=== PATIENT | male | born 1990 | race Caucasian/White ===

== ENCOUNTER 2017-08-18 00:12 | Emergency (ER) | payer OTHER ==
[~2017-08-18] VITALS: Ht 180.3 cm; Wt 88.0 kg
[2017-08-18] MEDS ORDERED: HYDROcodone/APAP 5/325MG 1 TAB TABLET PO ONE (00:45)
[2017-08-18] MEDS ORDERED: HYDR-2758 PO (01:59)
--- NOTE | 2017-08-18 02:00 | PHYS DOC ---
Adult General Chief Complaint Chief Complaint: MECHANICAL FALL HPI HPI 18-year-old male presenting to the emergency department after having mechanical fall playing mask well. He reports back pain and right knee pain. His pain is sharp moderate intermittent and without alleviating factors. He denies any other injuries. He reports multiple surgeries on his right knee of the ACL and believes he may have reinjured his ligaments. Review of systems is negative for chest pain shortness of breath abdominal pain nausea vomiting. All other review of systems is negative unless otherwise noted in history of present illness. ED course: 18-year-old male presenting to the emergency department today with right knee pain and back pain. Oral hydrocodone given for pain while here. X- ray of the knee shows no obvious acute fracture or dislocation. X-rays of the low back reviewed by myself show no obvious fractures or acute abnormalities. On reexamination the patient is feeling better. Pertinent physical exam findings show pain with passive range of motion of the knee. Effusion present. No abrasions lacerations or ecchymosis. Palpable pulse distally. 2 second cap refill. Otherwise the remainder the extremities are atraumatic with normal range of motion of the joints. He was placed in a knee immobilizer and discharged back to care home to follow-up with an orthopedic surgeon and a possible outpatient MRI. Review of Systems Review of Systems SEE ABOVE Current Medications Current Medications Current Medications Medications (Trade) Dose Ordered Sig/Larisa Start Time Stop Time Status Last Admin Dose Admin Acetaminophen/ Hydrocodone Bitart (Lortab 5/325) 2 tab 1X ONCE 08/18/17 00:45 08/18/17 01:02 DC 08/18/17 00:45 2 TAB Allergies Allergies Allergies Coded Allergies Type Severity Reaction Last Updated Verified Penicillins Allergy Intermediate Swelling 08/18/17 Yes Physical Exam Physical Exam Constitutional: Well developed, well nourished, no acute distress, non-toxic appearance. [] HENT: Normocephalic, atraumatic, bilateral external ears normal, oropharynx moist, no oral exudates, nose normal. [] Eyes: PERRLA, EOMI, conjunctiva normal, no discharge. [] Neck: Normal range of motion, no tenderness, supple, no stridor. [] Cardiovascular:Heart rate regular rhythm, no murmur [] Lungs & Thorax: Bilateral breath sounds clear to auscultation [] Abdomen: Bowel sounds normal, soft, no tenderness, no masses, no pulsatile masses. [] Skin: Warm, dry, no erythema, no rash. [] Back: No tenderness, no CVA tenderness. [] Extremities: see above Neurologic: Alert and oriented X 3, normal motor function, normal sensory function, no focal deficits noted. [] Psychologic: Affect normal, judgement normal, mood normal. [] EKG EKG [] Radiology/Procedures Radiology/Procedures [] Course & Med Decision Making Course & Med Decision Making Pertinent Labs and Imaging studies reviewed. (See chart for details) [] Dragon Disclaimer Dragon Disclaimer This chart was dictated in whole or in part using Voice Recognition software in a busy, high-work load, and often noisy Emergency Department environment. It may contain unintended and wholly unrecognized errors or omissions. Departure Departure: Impression: Primary Impression: Right knee pain Additional Impression: Low back pain Disposition: HOME, SELF-CARE Condition: STABLE Patient Instructions: Back Exercises, Back Pain, Adult, Knee Pain, [id number] Additional Instructions: Thank you for allowing us to participate in your care today. Followup with your primary care physician in 3 days if your symptoms do not improve. You will likely need to see an orthopedic surgeon and have an MRI of your knee given your long-standing history of knee surgeries. Call your Primary Doctor tomorrow and inform them of your visit today. If you do not have a primary care provider you can ask for a list of our primary care providers. Return to the emergency department you have any new or concerning findings. This should be evaluated by the primary care physician and any necessary consulting services for continued management within a few days after discharge. Return to emergency room if you have any new or concerning symptoms including but not limited to fever, chills, nausea, vomiting, intractable pain, any new rashes, chest pain, shortness of air, uncontrolled bleeding, difficulty breathing, and/or vision loss. You may have been prescribed medication that can change in your level of thinking and ability to operate machinery. These medications include hydrocodone and Ativan. Also, Benadryl has been known to do this as well. Be sure to check with your pharmacist and ask if the medications you've prescribed can affect your level of consciousness. I recommend not operating heavy machinery or driving while on medication such as these. Scripts Hydrocodone Bit/Acetaminophen (HYDROCODONE-APAP 5-325 ) 1 Each Tablet 1 TAB PO PRN Q6HRS Y for PAIN, #10 TAB 0 Refills Prov: NIKOLAS RUIZ MD 08/18/17 Problem Qualifiers NIKOLAS RUIZ MD Aug 18, 2017 02:00
[2017-08-18 02:15] VITALS: BP 119/68
--- NOTE | 2017-08-18 08:28 | RAD ---
EXAM: Lumbar spine 2 or 3 views. HISTORY: Fall, low back pain COMPARISON: None. FINDINGS: Alignment is maintained. Vertebral body heights are maintained, and no fractures are identified. There is mild degenerative disc disease from L4 through S1. IMPRESSION: 1. Mild degenerative disc disease from L4 through S1.
--- NOTE | 2017-08-18 08:32 | RAD ---
EXAM: Right knee, 3 views HISTORY: Right knee pain after a fall. COMPARISON: None. FINDINGS: No fractures are identified. There are changes of anterior cruciate ligament reconstruction. Joint spaces are maintained. Alignment is normal. There is a small joint effusion. There is some swelling in the infrapatellar region. There is some ossification along the origin of the patellar tendon. IMPRESSION: 1. Small joint effusion. 2. Infrapatellar soft tissue swelling. Correlate clinically.
== END 2017-08-18 02:20 | disposition home or self-care (01) ==
LOC: ER 00:12 → EEVIPCON 00:12 → ER 02:20
DX: M25.561 Pain in right knee (principal); M54.5 Low back pain; Z88.0 Allergy status to penicillin; W19.XXXA Unspecified fall, initial encounter; Y93.89 Activity, other specified; Y99.8 Other external cause status; Y92.89 Other specified places as the place of occurrence of the external cause
CPT/HCPCS: 29505; 72100; 73562; 99284-25